=== PATIENT | male | born 1975 ===

== ENCOUNTER 2018-08-05 19:07 | Emergency (ER) | payer SELFPAY ==
[2018-08-05 19:33] VITALS: BP 132/83; PULSE 78; RESP 16; TEMP 98.2; O2SAT 98
--- NOTE | 2018-08-05 19:57 | C.PDOC ---
History Of Present Illness 42 year old male presents to the ED for evaluation of swelling and bruising to left little finger status post getting kicked on left hand while playing soccer. Denies any other injuries, weakness, numbness, or tingling. Time Seen by Provider: 08/05/18 19:23 Chief Complaint (Nursing): Finger,Hand,&Wrist History Per: Patient History/Exam Limitations: no limitations Onset/Duration Of Symptoms: Hrs Current Symptoms Are (Timing): Still Present Quality: "Pain" Past Medical History Reviewed: Historical Data, Nursing Documentation, Vital Signs Vital Signs: Last Vital Signs Temp 98.2 F 08/05/18 19:16 Pulse 78 08/05/18 19:16 Resp 16 08/05/18 19:16 BP 132/83 08/05/18 19:16 Pulse Ox 98 08/05/18 19:16 Primary Care Provider: FAMILY PROVIDER,NO - Medical History PMH: No Chronic Diseases Surgical History: No Surg Hx Family History: States: No Known Family Hx - Social History Hx Alcohol Use: No Hx Substance Use: No - Immunization History Hx Tetanus Toxoid Vaccination: No Hx Influenza Vaccination: No Hx Pneumococcal Vaccination: No Review Of Systems Constitutional: Negative for: Fever, Chills, Weakness ENT: Negative for: Nose Congestion, Throat Pain Cardiovascular: Negative for: Chest Pain Respiratory: Negative for: Cough, Shortness of Breath Gastrointestinal: Negative for: Nausea, Vomiting, Diarrhea Genitourinary: Negative for: Dysuria, Hematuria Musculoskeletal: Negative for: Back Pain Skin: Positive for: Bruising (left little finger ), Other (swelling to left little finger) Neurological: Negative for: Weakness, Numbness Physical Exam - Physical Exam Appears: Non-toxic, No Acute Distress Skin: Warm, Dry, No Rash Head: Normacephalic Eye(s): bilateral: Normal Inspection Nose: Normal Oral Mucosa: Moist Neck: Supple Extremity: Tenderness (left little finger), Capillary Refill (less than 2 sec to left hand ), No Deformity, Swelling (left little finger), Other (ecchymosis to l eft little finger) Pulses: Left Radial: Normal, Right Radial: Normal Neurological/Psych: Oriented x3, Normal Speech, Normal Motor, Normal Sensation Gait: Steady ED Course And Treatment O2 Sat by Pulse Oximetry: 98 (RA) Pulse Ox Interpretation: Normal Medical Decision Making Medical Decision Making: Plan - XR left hand X-ray shows fracture to the base of left fifth proximal phalanx. Splint applied by strength and conditioning coach. Patient referred to Hand project management specialist. Instructed to return to the ED if symptoms worsen or persist. Disposition Counseled Patient/Family Regarding: Diagnosis, Need For Followup - Disposition Referrals: Janet Espinoza MD [Staff Provider] - [facility] [Outside] Disposition: HOME/ ROUTINE Disposition Time: 19:56 Condition: STABLE Instructions: Finger Fracture (DC) Forms: Gen Discharge Inst [place]ese, [employer] ([place]ese) Print Language: WELSH - Clinical Impression Clinical Impression: Fracture of phalanx of left little finger - PA / BREAD DOUGH MIXER / Resident Statement MD/DO has reviewed & agrees with the documentation as recorded. - Scribe Statement The provider has reviewed the documentation as recorded by the Scribludin Sr All medical record entries made by the Americoibludin were at my direction and personally dictated by me. I have reviewed the chart and agree that the record accurately reflects my personal performance of the history, physical exam, medical decision making, and the department course for this patient. I have also personally directed, reviewed, and agree with the discharge instructions and disposition.
--- NOTE | 2018-08-06 15:34 | RAD ---
PROCEDURE: Left Hand Radiographs. HISTORY: injury COMPARISON: None. TECHNIQUE: 3 views obtained. FINDINGS: BONES: There is a comminuted intra-articular fracture traversing the base of the proximal phalanx 5th finger with slight lateral angulation of the of the distal fracture fragments. JOINTS: Normal. No osteoarthritic changes. SOFT TISSUES: Normal. OTHER FINDINGS: None. IMPRESSION: Comminuted intra-articular fracture traversing the base of the proximal phalanx 5th finger with slight lateral angulation of the of the distal fracture fragments.
== END 2018-08-05 20:24 | disposition home or self-care (01) ==
LOC: C.ER 19:07
DX: S62.617A Displaced fracture of proximal phalanx of left little finger, initial encounter for closed fracture (principal); W50.1XXA Accidental kick by another person, initial encounter; Y93.66 Activity, soccer